=== PATIENT | male | born 1950 | race Caucasian/White ===

== ENCOUNTER 2019-06-03 08:11 | Day surgery (SDC) | payer OTHER, MEDICARE ==
[2019-05-31 17:17] VITALS: BMI 27.3
[2019-06-03 09:10] VITALS: TEMP 97.4
[2019-06-03 09:46] VITALS: BP 134/79; PULSE 72
--- NOTE | 2019-06-07 15:20 | PATH ---
Surgical Pathology Report Patient Name: ZARIA VAZQUEZ [facility]. Rec. #: [id number] /Age/Gender: 1950 (Age: 69) / M Account: [id number] Location: [facility] Taken: 06/03/2019 Received: 06/03/2019 Reported: 06/07/2019 Physicians: Golden Iniguez M.D. Specimen(s) Received A: SECOND PORTION DUODENUM B: ANTRUM C: GASTRIC POLYP D: ESOPHAGUS Clinical History GERD, history of Pulido's Postoperative diagnosis: Duodenitis, gastric polyp, hiatal hernia, possible Pulido's esophagus Final Diagnosis A. SECOND PORTION OF DUODENUM, BIOPSY: DUODENAL MUCOSA WITH EPITHELIAL DENUDATION, CHRONIC AND FOCALLY ACUTE DUODENITIS, AND FOCALLY FLATTENED VILLI. NO HISTOLOGIC EVIDENCE OF INTRAEPITHELIAL LYMPHOCYTOSIS. B. ANTRUM, BIOPSY: GASTRIC MUCOSA WITH CHRONIC GASTRITIS. IMMUNOSTAIN FOR H. PYLORI IS NEGATIVE. NEGATIVE FOR INTESTINAL METAPLASIA. C. GASTRIC POLYP, BIOPSY: FUNDIC GLAND POLYP IMMUNOSTAIN FOR H. PYLORI IS NEGATIVE. NEGATIVE FOR INTESTINAL METAPLASIA. D. 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 NEGATIVE FOR DYSPLASIA. Electronically Signed Sherrill Shaikh M.D. Gross Description A. Received in formalin, labeled "biopsy second portion of duodenum" is a miles, irregular portion of soft tissue measuring 0.4 cm. in greatest dimension. The specimen is submitted in toto in one cassette. B. Received in formalin, labeled "biopsy gastric antrum" are 2 miles, irregular portions of soft tissue measuring 0.3 and 0.4 cm. in greatest dimension. The specimens are submitted in toto in one cassette. C. Received in formalin, labeled "biopsy gastric polyp" is a miles, irregular portion of soft tissue measuring 0.3 cm. in greatest dimension. The specimen is submitted in toto in one cassette. D. Received in formalin, labeled "biopsy esophagus" are 4 miles, irregular portions of soft tissue ranging from 0.3-0.5 cm. in greatest dimension. The specimens are submitted in toto in one cassette. DL/06/04/2019 saudi/06/04/2019
== END 2019-06-03 09:50 | disposition home or self-care (01) ==
LOC: FASU-ENDO 08:11
PROVIDERS: ATTEND Internal Medicine Gastroenterology
PROC: 0DB68ZX Excision of Stomach, Via Natural or Artificial Opening Endoscopic, Diagnostic (ICD-10-PCS; 2019-06-03)
PROC: 0DB38ZX Excision of Lower Esophagus, Via Natural or Artificial Opening Endoscopic, Diagnostic (ICD-10-PCS; 2019-06-03)
PROC: 0DB48ZX Excision of Esophagogastric Junction, Via Natural or Artificial Opening Endoscopic, Diagnostic (ICD-10-PCS; 2019-06-03)
PROC: 0DB98ZX Excision of Duodenum, Via Natural or Artificial Opening Endoscopic, Diagnostic (ICD-10-PCS; principal; 2019-06-03 08:50)
DX: Z13.810 Encounter for screening for upper gastrointestinal disorder (principal); K29.50 Unspecified chronic gastritis without bleeding; K44.9 Diaphragmatic hernia without obstruction or gangrene; K22.70 Barrett's esophagus without dysplasia; K29.80 Duodenitis without bleeding
CPT/HCPCS: 88305-TC; 88342-TC